=== PATIENT | female | born 1960 | race Caucasian/White ===

== ENCOUNTER → 2020-11-01 | Outpatient (CLI) | payer SELFPAY ==
[2020-11-01 10:13] LABS: ALBUMIN 4.7 g/dL (3.5-5.0); ALKALINE PHOSPHATASE 75 U/L (38-126); ANION GAP 7 (5-19); ASPARTATE AMINO TRANSFERASE 30 U/L (14-36); BILIRUBIN,DIRECT 0.1 mg/dL (0.0-0.4); BILIRUBIN,TOTAL 1.1 mg/dL (0.2-1.3); BLOOD UREA NITROGEN 11 mg/dL (7-20); CALCIUM 9.8 mg/dL (8.4-10.2); CARBON DIOXIDE 27 mmol/L (22-30); CHLORIDE 105 mmol/L (98-107); CHOLESTEROL 252.22 mg/dL (0-200); GLUCOSE 98 mg/dL (75-110); POTASSIUM 4.4 mmol/L (3.6-5.0); TRIGLYCERIDES 71 mg/dL (<150)
[2020-11-01 10:23] LABS: DIRECT LDL 125 mg/dL (<100)
== END ==
LOC: OD 08:04
PROVIDERS: ATTEND Family Medicine Geriatric Medicine
DX: E83.41 Hypermagnesemia (principal); E78.5 Hyperlipidemia, unspecified; M10.9 Gout, unspecified; E16.2 Hypoglycemia, unspecified; Z79.899 Other long term (current) drug therapy
CPT/HCPCS: 36415; 80053; 80061